=== PATIENT | female | born 1935 | race Two or more races ===

== ENCOUNTER 2017-01-29 11:48 | Emergency (ER) | payer OTHER ==
[~2017-01-29] VITALS: Ht 160 cm; Wt 69.7 kg
[2017-01-29] MEDS ORDERED: IBUPROFEN 200 MG TABLET PO ONE (13:00)
[2017-01-29] MEDS ORDERED: DIPH,PERTUSS(ACELL),TET VAC/PF 0.5 ML IM-VACC ONE ×2 (13:00→13:12)
[2017-01-29] MEDS ORDERED: IBUPROFEN 200 MG TABLET ONE (13:13)
[2017-01-29 15:37] VITALS: BP 149/56
== END 2017-01-29 15:39 | disposition home or self-care (01) ==
LOC: ED 15:33
DX: S32.040A Wedge compression fracture of fourth lumbar vertebra, initial encounter for closed fracture (principal); S80.812A Abrasion, left lower leg, initial encounter; W19.XXXA Unspecified fall, initial encounter; Y93.89 Activity, other specified; Y99.8 Other external cause status; Y92.59 Other trade areas as the place of occurrence of the external cause
CPT/HCPCS: 70450; 72110; 72125; 72190; 90471; 90715